=== PATIENT | female | born 1985 | race Caucasian/White ===

== ENCOUNTER 2021-10-16 11:42 | Emergency (ER) | payer MEDICARE, OTHER ==
[2021-10-16] MEDS ORDERED: CEPHALEXIN500 M1 PO (12:36)
[2021-10-16] MEDS ORDERED: BACTRIM DS TAB1 EACH PO (12:36)
[2021-10-16] MEDS ORDERED: IBUPROFEN600 MG PO (12:36)
== END 2021-10-16 13:16 | disposition home or self-care (01) ==
LOC: ER1 11:42
DX: L03.116 Cellulitis of left lower limb (principal); L03.114 Cellulitis of left upper limb; G40.909 Epilepsy, unspecified, not intractable, without status epilepticus; F19.10 Other psychoactive substance abuse, uncomplicated; Z88.5 Allergy status to narcotic agent; Z79.899 Other long term (current) drug therapy
CPT/HCPCS: 99283